=== PATIENT | male | born 1945 | race Caucasian/White ===

== ENCOUNTER 2016-06-18 20:48 | Emergency (ER) | payer MEDICARE, OTHER ==
[~2016-06-18] VITALS: Ht 188 cm; Wt 91.8 kg
[2016-06-18 21:03] VITALS: BP 160/85; PULSE 50; RESP 16; O2SAT 98
--- NOTE | 2016-06-18 21:33 | ED.REPORT ---
HPI-Head Prob / Injury Date of Service Jun 18, 2016 ED Provider: Blas Slater MD This patient is an otherwise healthy 70 year old male presenting to the ED complaining of head trauma. He was up 3.5 ft on a ladder then slipped and fell onto frozen dirt around 1600. He fell on the right side of his head and denies neck injury. EMT was called by pt's son due to a possible concussion, pt's states but refused transport. Pt's also states that he does not remember the fall. He takes aspirin daily. Nursing Notes Stated Complaint: FALL/HIT HEAD Chief Complaint: Multiple Trauma/Fall Nursing Notes Reviewed: Yes Allergies: Coded Allergies: No Known Allergies (Unverified , 06/18/16) General Time Seen by Provider: 21:33 Chief Complaint Other (Head injury from fall) Hx Obtained From: Patient, Spouse Arrived By: Walk-in Onset Occurred: 5 - 8 hours ago Symptom Duration: Since onset Caused by: Fall from (ladder 3-4ft tall) Location: : Temporal region R Immunizations: All up to date Recent Healthcare: No recent doctor visit, No recent hospitalization Similar Sx Previous: No Risk-Head Prob / Injury Head CT Imaging Inclusion Criteria: >/= 16 yo age GCS of 14 OR 15 Presentation w/in 24 hrs. Patient Presents WITH: PostTraumatic Amnesia RF Statements: Risk factors reviewed Past Medical History Past Medical History None reported Past Surgical History None reported Social History Other Social History: Good social support, , From out of town Ambulatory Status Independent Review of Systems Review of Systems Note: head injury Basic Review of Systems Respiratory: No shortness of breath, No cough Cardiovascular: No chest pain GI: Denies: Abdominal pain Musculoskeletal: Denies: Back pain, Neck pain Skin: Denies Rash Complete sys rev & neg: except as marked. Physical Exam Initial Vital Signs Vital Signs (First) Date Time Temp Pulse Resp B/P Pulse Ox O2 Delivery O2 Flow Rate FiO2 06/18/16 21:03 36.1 50 16 160/85 98 Room Air Initial VS: Reviewed Respiratory: Breath sounds normal, Clear to auscultation, No respiratory distress Cardiovascular: Regular rate & rhythm, Heart sounds normal, Intact distal pulses Lymphatic: No lymphadenopathy Extremities: Vascular intact, No swelling, No tenderness Skin: Warm, Dry, No cyanosis Psychiatric: Mood/affect normal, Behavior normal, Normal thought content Head / Eyes: Normocephalic, PERRL Right sided ecchymosis, temporal Interpretation & Diagnostics Pulse Oximetry Interpretation Pulse Oximetry Interpretation: 98% on room air Pulse Oximetry: Pulse Ox normal CT Head Interpretation Impression: Atrophy with age-related changes. Sinusitis. Interpretation / Wet Read by: Interpret - Radiologist Re-Eval/Medical Decision Med Decision/Clinical Course Fall >5ft with amnesia CT scan indicated Source of Hx: Old records Re-Evaluation/Progress : Time of Eval: 22:53 Patient Status: Condition improved Re-Evaluation/Progress Note: Pt rechecked, who is resting comfortably. He is informed of CT results, diagnosis, and the plan for discharge. The pt understands and agrees with the plan. All questions are addressed at this time. Counseled Regarding: Diagnosis, Lab results, Need for follow-up, When/why to return to ED Discharge & Departure Primary Impression: Head injury Encounter type: initial encounter Qualified Code: S09.90XA - Unspecified injury of head, initial encounter Additional Impression: Concussion Encounter type: initial encounter Loss of consciousness presence/duration: without LOC Qualified Code: S06.0X0A - Concussion without loss of consciousness, initial encounter Disposition: Home All VS Reviewed: Yes Condition: Stable Patient Instructions: Concussion (ED), Minor Head Injury (ED) Additional Instructions: The CT scan did not show evidence of traumatic brain injury or skull fracture. Do not take aspirin for 48 hours. He may take Tylenol or Motrin as directed for pain. Set up a follow-up with her primary care physician for next week. Return to the emergency department or be seen right away if you have any new or worsening symptoms. It was very nice meeting you. Read the aftercare instructions given. Referrals: [facility] Scribe Attestation Portions of this note were transcribed by Yasmin Mccurdy and Francisca Zamora. I, Dr. Slater, personally performed the history, physical exam and medical decision- making; I reviewed and confirmed the accuracy of the information in the transcribed note. Signed by: Yasmin Mccurdy and Reagan Felder, 06/18/2016 and 22:26. copies to: [facility] Blas Slater DO Jun 18, 2016 21:33 Evi Zamora [Francisca] Jun 18, 2016 22:07 YASMIN MCCURDY Jun 18, 2016 22:45
[2016-06-18 23:26] VITALS: BP 149/84; PULSE 49; RESP 16; O2SAT 98
--- NOTE | 2016-06-19 08:35 | DRSVH ---
PROCEDURE: CT BRAIN WITHOUT CONTRAST ([id number]) INDICATIONS: head injury, fall 9 feet, amnesia TECHNIQUE: Noncontrast 4.5 mm thick angled axial sections acquired from the foramen magnum to the vertex, with c oronal reformats. COMPARISON: None. FINDINGS: Image quality: Excellent. CSF spaces: Basal cisterns are patent. No extra-axial fluid collections. The ventricles are symmet ton in size and shape. Brain: No intracranial bleeds or masses. There is cerebral volume loss for age, with resultant vent ricular and sulcal prominence. There are periventricular and deep white matter chronic small vessel ischemic changes. There is intracranial internal carotid artery atherosclerosis. Skull and face: Calvarium and visualized facial bones appear intact, without suspicious lesions. Sinuses: Mucosal thickening is noted in the maxillary sinuses bilaterally, the ethmoid air cells bila terally, the sphenoid sinuses bilaterally and the frontal sinuses bilaterally. The mastoids are clear . IMPRESSION: 1. No acute intracranial disease process. 2. Pansinusitis. Dictated by: Goldie Núñez MD, PhD on 06/19/2016 at 8:33 Approved by: Goldie Núñez MD, PhD on 06/19/2016 at 8:33
== END 2016-06-18 23:34 | disposition home or self-care (01) ==
LOC: SED 20:48
DX: S06.0X0A Concussion without loss of consciousness, initial encounter (principal); W11.XXXA Fall on and from ladder, initial encounter; Y93.89 Activity, other specified; Y92.89 Other specified places as the place of occurrence of the external cause; Y99.8 Other external cause status